=== PATIENT | male | born 1980 | race Caucasian/White ===

== ENCOUNTER 2016-10-18 19:23 | Emergency (ER) | payer OTHER ==
--- NOTE | 2016-10-18 19:42 | ED Physician Documentation ---
Upper Respiratory Symptoms - HISTORIAN Historian: patient - HPI Stated Complaint: cough Chief Complaint: Cough/ Upper Respiratory Additional Information: 36 yo M with cough, runny nose, sore throat x4 days. Son started to have similar symptoms today. No fever but has had chills. No n/v/c/d. Has useed OTC mucinex with temp relief. No CP. Non smoker. All other systems reviewed and negative except per HPI. Onset: days ago Duration: constant Associated Symptoms: chills, runny nose, sore throat, other (non productive cough) - ROS CONST/EYES: denies: weakness CVS/RESP: denies: chest pain, shortness of breath LYMPH: denies: leg swelling, rash, swollen glands GI/: denies: abdominal pain, problems urinating, vomiting, nausea, diarrhea NEURO/PSYCH: denies: fainting, dizziness MS/SKIN: denies: joint pain, muscle aches Comment: non productive cough - PAST HX Lung Disease: none PE Risk Factors: none Surgeries/Procedures: none Immunizations: UTD Allergies/Adverse Reactions: Allergies Allergy/AdvReac Type Severity Reaction Status Date / Time cephalexin monohydrate Allergy Mild Verified 06/22/16 02:45 [From Keflex] nabumetone [From Relafen] Allergy Verified 06/22/16 02:45 Home Medications: Ambulatory Orders Medication Instructions Recorded NK [NK] 06/21/16 - SOCIAL HX Smoking History: non-smoker Alcohol Use: none Drug Use: none - FAMILY HX Family History: none - VITAL SIGNS Vital Signs: Vital Signs Temp Pulse Resp BP Pulse Ox 98.4 F 102 H 16 136/90 98 10/18/16 19:23 10/18/16 19:23 10/18/16 19:23 10/18/16 19:23 10/18/16 19:23 - REVIEWED ASSESSMENTS Nursing Assessment Reviewed: Yes Vitals Reviewed: Yes Upper Respiratory Symptoms - EXAM General Appearance: no acute distress, alert EENT: nml ENT inspection, rhinorrhea, pharynx nml. No: TM erythema Neck: normal inspection. No: lymphadenopathy Respiratory: no resp. distress, breath sounds nml, no pain on inspiration, speaks full sentences. No: respiratory distress, wheezes, rales, rhonchi Abdomen: non-tender, no organomegaly, nml bowel sounds CVS: reg rate & rhythm, heart sounds normal, no murmur Skin: color nml, no rash, warm,dry Extremities: non-tender Neuro/Psych: oriented x3 Discharge Clincal Impression: Viral URI with cough Referrals: Nelson Anderson [Primary Care Provider] - 2 Days Additional Instructions: Use prescription as writte. F/U prn. Home Medications: Ambulatory Orders NK [NK] 06/21/16 Comments: Afebrile, clear lungs. Non toxic with otherwise normal Vs. D/C Condition: Good Disposition: 01 HOME, SELF-CARE Decision to Admit: NO Decision Time: 19:50
[2016-10-18 20:04] VITALS: BP 136/90
== END 2016-10-18 19:55 | disposition home or self-care (01) ==
LOC: ED 19:23
DX: J06.9 Acute upper respiratory infection, unspecified (principal); R05 Cough
CPT/HCPCS: 99282; 99283

== ENCOUNTER 2017-02-18 08:13 | Emergency (ER) | payer OTHER ==
--- NOTE | 2017-02-18 08:45 | ED Physician Documentation ---
General Adult - HISTORIAN Historian: patient - HPI Stated Complaint: left hand 3rd digit pain Chief Complaint: Upper Extremity Injury Onset: hours Timing: still present Further Comments: yes (On February 08 patient sustained a proximal middle phalanx fracture. Patient subsequently underwent an open reduction with external fixation. Patient states that he was wrestling with his son and his son fell and put all of his weight on his finger. Patient states it is been having some pain in his finger since at time. And notice of minimum swelling. Patient denies any numbness. Patient comes in the habit reevaluated.) - ROS CONST: no problems - PAST HX Past History: none Other History: none Surgeries/Procedures: other (rotator cuff surgery bilaterally) Allergies/Adverse Reactions: Allergies Allergy/AdvReac Type Severity Reaction Status Date / Time cephalexin monohydrate Allergy Mild Verified 10/18/16 20:04 [From Keflex] fentanyl Allergy Verified 02/18/17 08:25 nabumetone [From Relafen] Allergy Verified 10/18/16 20:04 Home Medications: Ambulatory Orders Medication Instructions Recorded oxyCODONE HCL/ACETAMINOPHEN 1 each PO Q4 PRN 02/18/17 [Percocet 5-325 mg Tablet] - SOCIAL HX Smoking History: non-smoker, greater than 1 pack/day Alcohol Use: none Drug Use: none - FAMILY HX Family History: No - VITAL SIGNS Vital Signs: Vital Signs Temp Pulse Resp BP Pulse Ox 98.2 F 88 18 138/105 97 02/18/17 08:26 02/18/17 08:26 02/18/17 08:26 02/18/17 08:26 02/18/17 08:26 - REVIEWED ASSESSMENTS Nursing Assessment Reviewed: Yes Vitals Reviewed: Yes General Adult Physical Exam - PHYSICAL EXAM GENERAL APPEARANCE: no distress RESPIRATORY: no resp distress. No: wheezes, rales, rhonchi CVS: reg rate & rhythm, heart sounds normal, equal pulses, no murmur ABDOMEN: soft, no organomegaly EXTREMITIES: non-tender, other (external fixature on left middle finger, minimal swelling noted.) NEURO: mood/affect nml, cognition normal Discharge Clincal Impression: Finger injury Qualifiers: Encounter type: initial encounter Laterality: left Qualified Code(s): S69.92XA - Unspecified injury of left wrist, hand and finger(s), initial encounter Referrals: Nelson Anderson [Primary Care Provider] - 2 Days Additional Instructions: Continue to protect the finger from further trauma. Has your finger reevaluated as scheduled. Take pain medication as previously prescibed Home Medications: Ambulatory Orders oxyCODONE HCL/ACETAMINOPHEN [Percocet 5-325 mg Tablet] 1 each PO Q4 PRN Condition: Stable Disposition: 01 HOME, SELF-CARE Decision to Admit: NO Date of Decison to Admit: 02/18/17 Decision Time: 09:01
[2017-02-18 09:20] VITALS: BP 132/92
--- NOTE | 2017-02-18 17:40 | Diagnostic Imaging Report ---
SHEA GILMORE [facility] [address] [facility] [address] [address] Report Submission Date: Feb 18, 2017 9:04:27 AM CDT Patient Study Name: KOLE SINGH Date: Feb 18, 2017 8:43:34 AM CDT Modality Type: CR Gender: M Description: UPPER EXTREMITY : 78 Institution: [facility] Physician: SHEA GILMORE 3 views of the right hand History: HAS EXTERNAL FIXATURE PLACED ON 3RD FINGER Findings: No comparison studies There is soft tissue swelling of the left middle finger. External fixator distal aspectl 3rd finger Mildly displaced fracture is noted at the base of the left 3rd finger middle phalanx with intra-articular extension. Also noted is cortical irregularity/ fracture of the head of the proximal phalynx 3rd finger, the fracture fragments are in near anatomic alignment Impression: 1. Mildly displaced fractures around the 3rd finger PIP joint- at the base of the middle phalanx and possibly head of the proximal phalanx with intra- articular extension, post external fixation. Soft tissue swelling Electronically signed on Feb 18, 2017 9:04:27 AM CDT by: Ines JEAN
== END 2017-02-18 09:18 | disposition home or self-care (01) ==
LOC: ED 08:13
DX: S69.92XA Unspecified injury of left wrist, hand and finger(s), initial encounter (principal); X58.XXXA Exposure to other specified factors, initial encounter; Y93.9 Activity, unspecified; Y99.9 Unspecified external cause status
CPT/HCPCS: 73140; 99283

== ENCOUNTER 2017-03-12 14:53 | Emergency (ER) | payer OTHER ==
[2017-03-12] MEDS ORDERED: 0.9 % SODIUM CHLORIDE 1,000 ML IV ONE (15:07)
[2017-03-12] MEDS: 0.9 % SODIUM CHLORIDE 1,000 ML IV SCH (15:10)
[2017-03-12] MEDS: KETOROLAC TROMETHAMINE 30 MG/1ML VIAL IVP ONE (15:15)
[2017-03-12 15:27] LABS: BASOPHILS % 0.5 (0.0-1.5); MEAN CORPUSCULAR HEMOGLOBIN 29.3 pg (28.0-34.0); MEAN CORPUSCULAR VOLUME 85.9 fl (80.0-100.0); MONOCYTES % 5.3 % (0.0-11.0); NEUTROPHILS # 5.1 # k/uL (1.4-7.7)
--- NOTE | 2017-03-12 15:38 | Diagnostic Imaging Report ---
[facility] [address] [facility] [address] [place], [place]. [address] Report Submission Date: Mar 12, 2017 3:36:42 PM CDT Patient Study Name: KOLE SINGH Date: Mar 12, 2017 3:08:05 PM CDT Modality Type: CT\SR Gender: M Description: CT ABD & PELVIS W/O CO : 78 Institution: [facility] Physician: SULTANA KHAN Examination: CT Abdomen/pelvis History: Right flank discomfort Comparison exams: None available Technique: CT Abdomen/pelvis without contrast protocol. Findings: Renal cortical margins are symmetric. No cortical or calyceal calcification. Right ureter is mildly dilated in its course through the abdomen and pelvis with peripheral stranding. 1.5 mm calcification identified just proximal to the right ureterovesicular junction. Left ureters described a normal course through the abdomen and pelvis. No abnormal dilation. No central calcification. Liver demonstrates mild diffuse low attenuation. No central abnormality. Spleen , adrenals, gallbladder and pancreas are without gross irregularity. Bowel unopacified limiting evaluation. No mesenteric inflammatory changes or free fluid. Appendix is visualized and is without inflammation. Osseous structures within normal limits for age. Lung bases without infiltrate. Impression: 1.5 mm distal right ureterolithiasis with mild proximal obstruction. No nephrolithiasis bilaterally. Fatty liver. Electronically signed on Mar 12, 2017 3:36:42 PM CDT by: Sukhdeep JEAN
--- NOTE | 2017-03-12 15:42 | ED Physician Documentation ---
Flank Pain - HISTORIAN Historian: patient - HPI Chief Complaint: Male Urogenital Problems Additional Information: RLQ abd pain started 8am, constant. voided dark "blood" urine just prior to calling EMS. had kidney stones in past. + nausea vomit Onset: hours Duration: constant Timing: still present Severity: moderate Quality: pain, sharp Associated Symptoms: nausea, vomiting, back pain Exacerbated by: nothing Relieved by: nothing Further Comments: no - ROS CONST: no problems GI/: bloody urine CVS/RESP: none EYES/ENT: none MS/SKIN/LYMPH: none NEURO/PSYCH: none - SOCIAL HX Smoking History: cigarettes Alcohol Use: occasionally Drug Use: none - FAMILY HX Family History: kidney stones - PAST HX Past History: kidney stones Ischemic Bowel Risk Factors: none Other History: none Surgeries/Procedures: none Medications: none Allergies: NKDA - VITAL SIGNS Vital Signs: Vital Signs Temp Pulse Resp BP Pulse Ox 132/92 02/18/17 09:18 - REVIEWED ASSESSMENTS Nursing Assessment Reviewed: Yes Vitals Reviewed: Yes ED Results Lab/Radiology - Radiology Radiology Impressions: CT shows 1.5 mm distal R ureteral stone. - Orders Orders: ED Orders Category Date Time Status CT ABD & PELVIS W/O CON Stat Exams 03/12/17 Ordered CBC/PLATELET/DIFF Routine Lab 03/12/17 Ordered CMP Routine Lab 03/12/17 Ordered URINALYSIS Routine Lab 03/12/17 Ordered 0.9 % Sodium Chloride [Normal Saline] 1,000 ml Med 03/12/17 15:00 Ordered IV 1T Ketorolac Tromethamine [Toradol] Med 03/12/17 14:57 Once 30 mg IVP NOW ONE Abdominal Pain Physical Exam - Physical Exam General Appearance: no acute distress, alert EENT: no signs of dehydration NECK: normal inspection RESPIRATORY: no resp distress CVS: reg rate & rhythm ABDOMEN: no distension (tender RLQ radiating to back) BACK: normal inspection SKIN: warm/dry, normal color EXTREMITIES: non-tender, normal range of motion NEURO: oriented X3, mood/affect nml, cognition normal Vital Signs: Vital Signs Temp Pulse Resp BP Pulse Ox 132/92 02/18/17 09:18 Discharge Clincal Impression: Ureteral stone Referrals: Nelson Anderson [Primary Care Provider] - 2 Days Home Medications: Ambulatory Orders oxyCODONE HCL/ACETAMINOPHEN [Percocet 5-325 mg Tablet] 1 each PO Q4 PRN Condition: Good Disposition: 01 HOME, SELF-CARE Decision to Admit: NO Date of Decison to Admit: 03/12/17 Decision Time: 15:41
[2017-03-12 15:45] LABS: eGFR (African) > 60; eGFR (Non-African) > 60
[2017-03-12 15:53] VITALS: BP 149/85
== END 2017-03-12 15:48 | disposition home or self-care (01) ==
LOC: ED 14:53
DX: N20.1 Calculus of ureter (principal)
CPT/HCPCS: 74176; 80053; 85025; J1885; J7030; 96361; 96374; 99283

== ENCOUNTER 2018-09-09 13:31 | Emergency (ER) | payer OTHER ==
--- NOTE | 2018-09-09 13:44 | ED Physician Documentation ---
General Adult - HISTORIAN Historian: patient - HPI Stated Complaint: right flank pain x 6 hours Chief Complaint: Abdominal Pain Onset: hours (6) Timing: still present Severity: mild Further Comments: yes (He states he started to have right lower flank pain this am and the pain has wrapped around to the front lower abdomen and into groin. Denies any pain with urination or decrease in urination. No fever. He denies any visable blood in urine. He has vomiting . 4 episodes of vomiting. No new foods or food exposures. No sick contacts . He does report a recent long bus ride to [place] to see his father.) - ROS CONST: sweating. denies: fever EYES/ENT: denies: sore throat CVS/RESP: denies: shortness of breath, cough GI/: abdominal pain, nausea. denies: problems urinating - PAST HX Past History: other Immunizations: UTD Allergies/Adverse Reactions: Allergies Allergy/AdvReac Type Severity Reaction Status Date / Time cephalexin monohydrate Allergy Mild Verified 09/09/18 14:03 [From Keflex] fentanyl Allergy Verified 09/09/18 14:03 ketamine Allergy Verified 09/09/18 14:03 nabumetone [From Relafen] Allergy Verified 09/09/18 14:03 Home Medications: Ambulatory Orders Medication Instructions Recorded NK 09/09/18 - SOCIAL HX Smoking History: non-smoker Alcohol Use: none Drug Use: none - FAMILY HX Family History: No - VITAL SIGNS Vital Signs: Vital Signs Temp Pulse Resp BP Pulse Ox 149/85 03/12/17 15:48 - REVIEWED ASSESSMENTS Nursing Assessment Reviewed: Yes Vitals Reviewed: Yes Progress - Progress Progress: 1436: states pain continues DG 1445 2mg Morphine given IVP via Myself DG 1450: pain is improved DG 1512: 2mg Morphine given. He is aware of results and is able to urinate fully without pain. DG ED Results Lab/Radiology - Radiology Radiology Impressions: FINDINGS: The lung bases are clear. There is fatty change in the liver. The spleen adrenal glands and pancreas are unremarkable. Gallbladder is unremarkable. There is right hydronephrosis and right hydroureter. The aorta is not dilated. Appendix is normal. The iliac arteries are nondilated. There is a 3 mm distal right ureteral calculus. The bladder is not well distended. A punctate left renal medullary calcification is present. IMPRESSION: Right hydronephrosis and right hydroureter secondary to 3 mm distal right ureteral calculus Punctate left renal medullary calcification Fatty liver Electronically signed on Sep 09, 2018 2:52:45 PM TEST GRADER by: Franklin Ware General Adult Physical Exam - PHYSICAL EXAM GENERAL APPEARANCE: no distress EENT: eye inspection normal, ENT inspection normal, dry mucous membranes NECK: normal inspection RESPIRATORY: no resp distress, chest non-tender, breath sounds normal CVS: reg rate & rhythm, heart sounds normal ABDOMEN: soft, normal bowel sounds, no distension, tenderness (RLQ and CVA right ). No: rebound, distended, guarding BACK: normal inspection, CVA tenderness (R) EXTREMITIES: non-tender, normal range of motion, no evidence of injury, no edema NEURO: oriented X3 Discharge Clincal Impression: Ureteral stone Referrals: Nelson Anderson [Primary Care Provider] - 2 Days Comments: 1. Toradol 10 mg take 1 by mouth every 6 hours as needed for pain 2. Flomax 0.4 mg take 1 by mouth daily 3. Increase fluids - no caffeine 4. Follow up with PCP in 2-4 days 5. Return to ER for any concerns Condition: Stable Disposition: 01 HOME, SELF-CARE Decision to Admit: NO Date of Decison to Admit: 09/09/18 Decision Time: 16:10
[2018-09-09] MEDS ORDERED: ONDANSETRON HCL/PF 4 MG/ 2ML VIAL IVP ONE (13:51)
[2018-09-09] MEDS ORDERED: KETOROLAC TROMETHAMINE 30 MG/1ML VIAL IVP ONE (13:51)
[2018-09-09] MEDS ORDERED: 0.9 % SODIUM CHLORIDE 1,000 ML IV ONE ×2 (13:52→15:01)
[2018-09-09] MEDS ORDERED: TAMSULOSIN HCL 0.4 MG CAP.ER.24H PO ONE ×2 (13:57→13:59)
[2018-09-09] MEDS ORDERED: MORPHINE SULFATE 2 MG/ML VIAL IVP ONE ×2 (14:26→15:01)
[2018-09-09] MEDS ORDERED: MORPHINE SULFATE 10 MG/ML VIAL ONE (14:29)
--- NOTE | 2018-09-09 15:17 | Diagnostic Imaging Report ---
ERIKA CAVANAUGH [facility] [address] [facility] [address] [place], [place]. [address] Report Submission Date: Sep 09, 2018 2:52:45 PM COMPOSITION FLOOR SETTER Patient Study Name: KOLE SINGH Date: Sep 09, 2018 2:15:32 PM COMPOSITION FLOOR SETTER Modality Type: CT Gender: M Description: CT ABD PELVIS W/O CO : 78 Institution: [facility] Physician: ERIKA CAVANAUGH CT abdomen and pelvis without contrast Date of study: September 09, 2018 CLINICAL HISTORY: RIGHT GROIN PAIN RADIATING TO RIGHT FLANK TODAY, NAUSEA. HX OF KIDNEY STONES. NO PREVIOUS ABDOMINAL SURGERY. (Hx) / ITS.REASON right flank pain 2+ urine (DICOM Hx) TECHNIQUE: 2.5 mm contiguous axial images of the abdomen and pelvis non contrast. FINDINGS: The lung bases are clear. There is fatty change in the liver. The spleen adrenal glands and pancreas are unremarkable. Gallbladder is unremarkable. There is right hydronephrosis and right hydroureter. The aorta is not dilated. Appendix is normal. The iliac arteries are nondilated. There is a 3 mm distal right ureteral calculus. The bladder is not well distended. A punctate left renal medullary calcification is present. IMPRESSION: Right hydronephrosis and right hydroureter secondary to 3 mm distal right ureteral calculus Punctate left renal medullary calcification Fatty liver Electronically signed on Sep 09, 2018 2:52:45 PM COMPOSITION FLOOR SETTER by: Franklin JEAN
[2018-09-09 16:26] VITALS: BP 122/61
[2018-09-10 07:22] LABS: APPEARANCE,URINE CLEAR (CLEAR); COLOR,URINE YELLOW (YELLOW); OCCULT BLOOD,URINE 2+ (NEGATIVE); PH URINE 5.5 (5.0 - 8.0); UROBILINOGEN URINE 0.2 Eu (0.2-1.0)
[2018-09-10 07:22] LABS: eGFR (Non-African) > 60
[2018-09-10 07:39] LABS: MEAN CORPUSCULAR HEMOGLOBIN 28.5 pg (28.0-34.0)
[2018-09-10 07:40] LABS: BASOPHILS % 0.6 (0.0-1.5); EOSINOPHILS % 2.8 % (0.0-6.8); MONOCYTES % 7.4 % (0.0-11.0); NEUTROPHILS # 3.9 # k/uL (1.4-7.7)
== END 2018-09-09 16:12 | disposition home or self-care (01) ==
LOC: ED 13:31
DX: N13.2 Hydronephrosis with renal and ureteral calculous obstruction (principal)
CPT/HCPCS: 36415; 74176; 80053; 81002; 85025; 96365; 96375; 96376; 99283; 99284; J1885; J2270; J2405; J7030; S1016

== ENCOUNTER 2018-11-30 20:08 | Emergency (ER) | payer OTHER ==
--- NOTE | 2018-11-30 20:51 | ED Physician Documentation ---
Hip Injury/Pain - HISTORIAN Historian: patient - HPI Stated Complaint: Finger injury Chief Complaint: Hand Injury (Left middle finger) Additional Information: Patient is a 38-year-old male that presents to the ER with c/o left middle finger injury. States that he was cleaning out a "stand up" air conditioning unit and his 200 pound son fell on it- smashing his left middle finger. He states it happened around 17:00 today. He states that he had external fixation to the finger before. No obvious deformity noted. Onset: hours (17:00) Where: home Severity: mild Duration: persistent since (playing on phone) Context: other Symptoms Prior to Fall: none Other Injuries: none Subsequent Symptoms: denies: sensory loss, motor loss Further Comments: no - ROS CONST: no problems RESP: denies: shortness of breath GI/: none EYES/ENT: none MS/SKIN/LYMPH: denies: neck pain, ankle swelling NEURO/PSYCH: denies: confusion, anxiety - PAST HX Cardiac Disease: none PE Risk Factors: none Other History: other (ADHD) Surgeries/Procedures: other (external fixation of left middle finger, 2 right shoulder surgeries) Immunizations: UTD Allergies/Adverse Reactions: Allergies Allergy/AdvReac Type Severity Reaction Status Date / Time cephalexin monohydrate Allergy Mild Verified 11/30/18 20:19 [From Keflex] fentanyl Allergy Verified 11/30/18 20:19 ketamine Allergy Verified 11/30/18 20:19 nabumetone [From Relafen] Allergy Verified 11/30/18 20:19 Home Medications: Ambulatory Orders Medication Instructions Recorded NK 09/09/18 - SOCIAL HX Smoking History: cigarettes, less than 1 pack/day Alcohol Use: rarely Drug Use: none - FAMILY HX Family History: No - VITAL SIGNS Vital Signs: Vital Signs Temp Pulse Resp BP Pulse Ox 98.5 F 122/61 11/30/18 20:08 09/09/18 16:24 ED Results Lab/Radiology - Radiology Radiology Impressions: Left hand three views History: Left middle finger injury Findings: The left hand is intact without fracture, dislocation, arthropathy, or focal bone lesion. Electronically signed on Nov 30, 2018 9:31:54 PM CDT by: Brandt Aguilera - Orders Orders: ED Orders Category Date Time Status XR HAND [HAND 3 VIEWS OR MORE] [RAD] Stat Exams 11/30/18 Taken Hip Injury/Pain Physical Exam - EXAM General Appearance: no acute distress, alert Extremities: soft tissue injury (minimal- no deformity- no obvious inflammation, playing on phone) EENT: eye inspection normal, ENT inspection normal Neck: nml inspection Respiratory: breath sounds nml CVS: heart sounds normal, equal pulses Skin: warm/dry, normal color Neuro/Psych: oriented x3, neuro grossly intact, mood/affect nml Discharge Clincal Impression: Finger injury Referrals: Nelson Anderson [Primary Care Provider] - 2 Days Additional Instructions: Use ice for inflammation Elevate hand as needed Follow up with PCP as needed Condition: Good Disposition: 01 HOME, SELF-CARE Decision to Admit: NO Decision Time: 21:40
--- NOTE | 2018-12-01 05:43 | Diagnostic Imaging Report ---
DAYANA MEJIA [facility] [address] [facility] [address] Report Submission Date: Nov 30, 2018 9:31:54 PM CDT Patient Study Name: KOLE SINGH Date: Nov 30, 2018 8:42:38 PM CDT Modality Type: DX Gender: M Description: HAND 3 VIEWS OR MORE : 78 Institution: [facility] Physician: DAYANA MEJIA Left hand three views History: Left middle finger injury Findings: The left hand is intact without fracture, dislocation, arthropathy, or focal bone lesion. Electronically signed on Nov 30, 2018 9:31:54 PM CDT by: Brandt JEAN
== END 2018-11-30 21:30 | disposition home or self-care (01) ==
LOC: ED 20:08
DX: S69.92XA Unspecified injury of left wrist, hand and finger(s), initial encounter (principal); W23.0XXA Caught, crushed, jammed, or pinched between moving objects, initial encounter; Y93.89 Activity, other specified; Y92.009 Unspecified place in unspecified non-institutional (private) residence as the place of occurrence of the external cause
CPT/HCPCS: 73130; 99282; 99283